=== PATIENT | female | born 1930 | race Caucasian/White ===

== ENCOUNTER 2017-02-25 08:43 | Emergency (ER) | payer MEDICARE, BC ==
--- NOTE | 2017-02-25 09:21 | UC ---
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 - History of Current Complaint Chief Complaint: UCEye Stated Complaint: EYE ISSUE Time Seen by Provider: 02/25/17 09:12 Hx Obtained From: Patient ?: No Onset/Duration: Sudden Onset, Lasting Days - 1, Still Present Timing: Constant Severity Initially: Mild Severity Currently: Mild Pain Intensity: 3 Pain Scale Used: 0-10 Numeric Location of Injury: Conjunctiva Aggravating Factor(s): Nothing Alleviating Factor(s): Nothing Associated Signs And Symptoms: Positive: Drainage (Purulent) - OD - Allergies/Home Medications Allergies/Adverse Reactions: Allergies Allergy/AdvReac Type Severity Reaction Status Date / Time Benazepril [From Lotensin] Allergy Coughing Verified 02/25/17 08:47 Sulfa Antibiotics Allergy Hives Verified 02/25/17 08:47 ceclor Allergy Hives Uncoded 02/25/17 08:47 Home Medications: Home Medications Ibuprofen TAB* [Advil TAB*] 600 mg PO PRN 02/25/17 [History] PMH/Surg Hx/FS Hx/Imm Hx Previously Healthy: Yes Endocrine History: Hypothyroidism Cardiovascular History: Hypertension GI/ History: Gastroesophageal Reflux Psychological History: Depression - Surgical History Surgical History: None - Family History Known Family History: Positive: Other - son with multiple myleoma - Social History Occupation: Retired Lives: With Family Alcohol Use: Daily Alcohol Amount: wine with dinner Substance Use Type: Prescribed Smoking Status (MU): Former Smoker Have You Smoked in the Last Year: No When Did the Patient Quit Smoking/Using Tobacco: > 10 years ago - Immunization History Most Recent Influenza Vaccination: 2016 Most Recent Tetanus Shot: utd Most Recent Pneumonia Vaccination: 2014 Review of Systems Constitutional: Negative Skin: Negative Eyes: Negative, Drainage - right eye---small amount of purulrnce ENT: Negative Respiratory: Negative Cardiovascular: Negative Gastrointestinal: Negative Genitourinary: Negative Motor: Negative Neurovascular: Negative Musculoskeletal: Negative Neurological: Negative Psychological: Negative All Other Systems Reviewed And Are Negative: Yes Physical Exam Triage Information Reviewed: Yes Completion Of Physical Exam Limited Due To: Altered Mental Status, Dementia, Extremis Vital Signs: Initial Vital Signs Temp 98.8 F 02/25/17 08:50 Pulse 50 02/25/17 08:50 Resp 16 02/25/17 08:50 BP 185/74 02/25/17 08:50 Pulse Ox 98 02/25/17 08:50 Vital Signs Reviewed: Yes Eye Exam: Normal Eyes: Positive: Conjunctiva Inflamed - slight OD, Other: ENT Exam: Normal ENT: Positive: Normal ENT inspection, Hearing grossly normal, Pharynx normal, Pharyngeal erythema. Negative: Trismus, Muffled/hoarse voice Dental Exam: Normal Neck exam: Normal Neck: Positive: Supple, Nontender, No Lymphadenopathy Respiratory Exam: Normal Respiratory: Positive: Chest non-tender, Lungs clear, Normal breath sounds, No respiratory distress, No accessory muscle use Cardiovascular Exam: Normal Cardiovascular: Positive: RRR, No Murmur, Pulses Normal, Brisk Capillary Refill Musculoskeletal Exam: Normal Musculoskeletal: Positive: Strength Intact, ROM Intact, No Edema Neurological Exam: Normal Neurological: Positive: Alert, Muscle Tone Normal Psychological Exam: Normal Psychological: Positive: Normal Response To Family, Age Appropriate Behavior Skin Exam: Normal Eye Complaint Course/Dx - Course Course Of Treatment: education redarding hand washing, Eryhtromycin ointment right eye 2 4 hours while awake j\ - Differential Dx/Diagnosis Differential Diagnosis/HQI/PQRI: Conjunctivitis, Penetrating Injury, Other Provider Diagnoses: Conjuctivitid od Discharge - Discharge Plan Condition: Stable Disposition: HOME Prescriptions: Erythromycin OPHTH.OINT* [Ilotycin OPHTH.OINT*] 1 applic RIGHT EYE Q4H #1 tube Patient Education Materials: DASH Eating Plan (ED), Hypertension (ED), Conjunctivitis (ED) Referrals: Non Staff,Doctor [Primary Care Provider] - Additional Instructions: Recheck blood pressure with your medical doctor in the next 2 weeks
== END 2017-02-25 09:42 | disposition home or self-care (01) ==
LOC: UCEAST 08:43
DX: H10.9 Unspecified conjunctivitis (principal); Z87.891 Personal history of nicotine dependence
CPT/HCPCS: 99212; G0463